=== PATIENT | male | born 1990 | race Caucasian/White ===

== ENCOUNTER 2021-05-05 17:48 | Emergency (ER) | payer BC ==
[2021-05-05] MEDS ORDERED: Sodium Chloride 0.9% 1,000 ML IV STA ×3 (18:04→20:05)
[2021-05-05] MEDS ORDERED: Ondansetron 4 MG/2 ML SDV IVPUSH ONE (18:04)
[2021-05-05] MEDS: Sodium Chloride 0.9% 10 ML Syringe FLUSH PRN ×2 (18:16→20:30)
[2021-05-05] MEDS ORDERED: Iopamidol 755 Mg/ML 100 ML Bottle IVPUSH ONE (20:31)
[2021-05-05] MEDS ORDERED: Oseltamivir 75 MG Cap PO ONE (21:13)
== END 2021-05-05 22:00 | disposition home or self-care (01) ==
LOC: JD.ED 17:48
DX: J10.1 Influenza due to other identified influenza virus with other respiratory manifestations (principal); J45.909 Unspecified asthma, uncomplicated; Z20.822 Contact with and (suspected) exposure to COVID-19
CPT/HCPCS: 36415; 71045; 71275; 80053; 84484; 85025; 85379; 86140; 87635; 87804; 93005; 96374; 99284; A9270; J2405; J7030; Q9967; 93010; 99285; U0002